=== PATIENT | female | born 1945 | race Caucasian/White ===

== ENCOUNTER → 2019-04-17 | Outpatient (CLI) | payer MEDICARE, MEDICAID ==
[~2019-04-17] VITALS: Ht 144.8 cm; Wt 62.5 kg
[~2019-04-17] MED LIST: LOSA25TA44 PO; MULT-1192 PO; RANO500T3 PO; RIVA10 PO; SIMV-260 PO
[2019-04-17 09:57] VITALS: BP 118/64
== END | disposition home or self-care (01) ==
LOC: SRCNTR 09:56
PROVIDERS: ATTEND Internal Medicine Clinical Cardiac Electrophysiology
DX: Z45.018 Encounter for adjustment and management of other part of cardiac pacemaker (principal); I48.91 Unspecified atrial fibrillation; I49.9 Cardiac arrhythmia, unspecified; E11.9 Type 2 diabetes mellitus without complications; I10 Essential (primary) hypertension
CPT/HCPCS: G0463

== ENCOUNTER → 2019-08-18 | Outpatient (CLI) | payer MEDICARE, MEDICAID ==
[~2019-08-18] VITALS: Ht 144.8 cm; Wt 65.1 kg
[2019-08-18 10:41] VITALS: BP 111/63
== END | disposition home or self-care (01) ==
LOC: SRCNTR 10:40
PROVIDERS: ATTEND Internal Medicine Clinical Cardiac Electrophysiology
DX: Z48.812 Encounter for surgical aftercare following surgery on the circulatory system (principal); I10 Essential (primary) hypertension; E11.9 Type 2 diabetes mellitus without complications; I48.91 Unspecified atrial fibrillation; I49.9 Cardiac arrhythmia, unspecified; Z79.899 Other long term (current) drug therapy
CPT/HCPCS: G0463

== ENCOUNTER → 2019-09-29 | Outpatient (CLI) | payer MEDICARE, OTHER ==
[~2019-09-29] VITALS: Ht 144.8 cm; Wt 65.2 kg
[2019-09-29 10:32] VITALS: BP 119/69
== END | disposition home or self-care (01) ==
LOC: SRCNTR 10:30
PROVIDERS: ATTEND Internal Medicine Clinical Cardiac Electrophysiology
DX: I48.91 Unspecified atrial fibrillation (principal); I49.9 Cardiac arrhythmia, unspecified; I10 Essential (primary) hypertension; E11.9 Type 2 diabetes mellitus without complications
CPT/HCPCS: G0463

== ENCOUNTER → 2019-10-23 | Outpatient (CLI) | payer MEDICARE, OTHER ==
[2019-10-23 11:34] VITALS: BP 128/77
== END | disposition home or self-care (01) ==
LOC: SRCNTR 11:31
PROVIDERS: ATTEND Internal Medicine Clinical Cardiac Electrophysiology
DX: Z95.810 Presence of automatic (implantable) cardiac defibrillator (principal); I48.91 Unspecified atrial fibrillation
CPT/HCPCS: G0463; Z7500

== ENCOUNTER → 2019-10-30 | Outpatient (CLI) | payer MEDICARE, OTHER ==
[~2019-10-30] VITALS: Ht 144.8 cm; Wt 64.2 kg
[2019-10-30 13:53] VITALS: BP 114/59
== END | disposition home or self-care (01) ==
LOC: SRCNTR 13:44
PROVIDERS: ATTEND Internal Medicine Clinical Cardiac Electrophysiology
DX: Z45.018 Encounter for adjustment and management of other part of cardiac pacemaker (principal)
CPT/HCPCS: G0463; Z7500

== ENCOUNTER → 2019-12-04 | Outpatient (CLI) | payer MEDICARE, OTHER ==
[~2019-12-04] VITALS: Ht 144.8 cm; Wt 64.0 kg
[2019-12-04 10:17] VITALS: BP 123/64
== END | disposition home or self-care (01) ==
LOC: SRCNTR 10:15
PROVIDERS: ATTEND Internal Medicine Clinical Cardiac Electrophysiology
DX: Z45.018 Encounter for adjustment and management of other part of cardiac pacemaker (principal)
CPT/HCPCS: G0463; Z7500

== ENCOUNTER → 2020-12-02 | Outpatient (CLI) | payer MEDICARE, OTHER ==
[~2020-12-02] VITALS: Ht 147.3 cm; Wt 68.0 kg
[~2020-12-02] MED LIST changes: +LOSA25TA41 PO; -LOSA25TA44 PO; -RIVA10 PO; +RIVA10TA PO
[2020-12-02 13:07] VITALS: BP 118/60
== END | disposition home or self-care (01) ==
LOC: SRCNTR 10:22
PROVIDERS: ATTEND Internal Medicine Clinical Cardiac Electrophysiology
DX: Z45.010 Encounter for checking and testing of cardiac pacemaker pulse generator [battery] (principal)
CPT/HCPCS: G0463